=== PATIENT | female | born 1990 | race African-American/Black ===

== ENCOUNTER 2019-12-26 15:31 | Emergency (ER) | payer OTHER ==
[~2019-12-26] VITALS: Ht 149.9 cm; Wt 91.0 kg
[2019-12-26 15:33] VITALS: BP 139/77
[2019-12-26] MEDS ORDERED: IBUP-1653 PO (15:37)
[2019-12-26] MEDS ORDERED: KETOROLAC 30MG/ML VIAL IM ONE (16:15)
[2019-12-26 16:46] LABS: BASOPHILS % 0.6 % (0.0-2.0); CHLORIDE 107 mEq/L (98-107); EOSINOPHILS % 0.3 % (0.0-5.0); HEMATOCRIT. 41.3 % (36.0-48.0); HEMOGLOBIN. 13.7 g/dL (12.0-16.0); LYMPHOCYTES % 21.8 % (20.0-50.0); MEAN CORPUSCULAR HEMOGLOBIN 30.5 pg (28.0-32.0); MEAN CORPUSCULAR VOLUME 91.9 fL (81.0-99.0); MONOCYTES % 5.1 % (2.0-8.0); NEUTROPHILS % 72.2 % (40.0-76.0); PLATELET 289 x1000/uL (130-400); RED CELL DISTRIBUTION WIDTH 12.7 % (11.6-14.6)
[2019-12-26 16:53] LABS: HCG SCREEN NEGATIVE
[2019-12-26] MEDS ORDERED: SODIUM CHLORIDE 0.9% 1,000 ML IV ONE (17:15)
[2019-12-26 17:40] LABS: CLARITY URINE CLOUDY (CLEAR); COLOR URINE DARK YELLOW (YELLOW); KETONES URINE TRACE (NEGATIVE); LEUKOCYTE ESTERASE URINE 2+ (NEGATIVE); NITRITE URINE NEGATIVE (NEGATIVE); OCCULT BLOOD URINE NEGATIVE (NEGATIVE); PH URINE 5.5 (4.5-8.0); PROTEIN URINE TRACE (NEGATIVE); SPECIFIC GRAVITY URINE 1.035 (1.005-1.030)
[2019-12-26] MEDS ORDERED: ONDANSETRON HCL 4MG/2ML INJ IV ONE (17:45)
[2019-12-26] MEDS ORDERED: CEFTRIAXONE 1 G PREMIX 50 ML IV ONE (17:45)
== END 2019-12-26 19:05 | disposition home or self-care (01) ==
LOC: ER 15:31
DX: N10 Acute pyelonephritis (principal); R00.0 Tachycardia, unspecified; Z87.440 Personal history of urinary (tract) infections
CPT/HCPCS: 36415; 80053; 81003; 81025; 84703; 85025; 87086; 96365; 96372; 96375; 99284; J0696; J1885; J2405; J7030

== ENCOUNTER 2019-12-27 23:06 | Emergency (ER) | payer OTHER ==
[~2019-12-27] VITALS: Ht 149.9 cm; Wt 91.0 kg
[~2019-12-27 23:06] MED LIST: IBUP-1653 PO
[2019-12-27] MEDS ORDERED: ONDANSETRON HCL 4MG/2ML INJ IV NR (23:32)
[2019-12-27] MEDS ORDERED: MORPHINE SULFATE 4 MG/ML CPJ (NOT FOR IM USE) IV NR (23:45)
[2019-12-27] MEDS ORDERED: SODIUM CHLORIDE 0.9% 1,000 ML IV NR (23:45)
[2019-12-28 00:11] LABS: BASOPHILS % 0.4 % (0.0-2.0); HEMATOCRIT. 41.2 % (36.0-48.0); HEMOGLOBIN. 13.8 g/dL (12.0-16.0); LYMPHOCYTES % 19.6 % (20.0-50.0); MEAN CORPUSCULAR HEMOGLOBIN 30.8 pg (28.0-32.0); MEAN CORPUSCULAR VOLUME 91.8 fL (81.0-99.0); MONOCYTES % 4.3 % (2.0-8.0); NEUTROPHILS % 74.7 % (40.0-76.0); PLATELET 275 x1000/uL (130-400); RED BLOOD CELL COUNT 4.49 mill/uL (4.2-5.4); RED CELL DISTRIBUTION WIDTH 12.7 % (11.6-14.6)
[2019-12-28 00:22] LABS: CHLORIDE 106 mEq/L (98-107)
[2019-12-28 02:51] LABS: CLARITY URINE CLOUDY (CLEAR); COLOR URINE YELLOW (YELLOW); KETONES URINE 1+ (NEGATIVE); LEUKOCYTE ESTERASE URINE 3+ (NEGATIVE); NITRITE URINE NEGATIVE (NEGATIVE); OCCULT BLOOD URINE 2+ (NEGATIVE); PH URINE 5.5 (4.5-8.0); PROTEIN URINE NEGATIVE (NEGATIVE); SPECIFIC GRAVITY URINE 1.012 (1.005-1.030); UROBILINOGEN URINE 0.2 E.U./dL (0.2-1.0)
[2019-12-28 05:50] VITALS: BP 120/79
== END 2019-12-28 05:55 | disposition home or self-care (01) ==
LOC: ER 23:06
DX: N10 Acute pyelonephritis (principal)
CPT/HCPCS: 36415; 71045; 74176; 80053; 81003; 83605; 84145; 84484; 85025; 87040; 87086; 93005; 96361; 96374; 96375; 99285; J2270; J2405

== ENCOUNTER 2020-01-07 12:13 | Emergency (ER) | payer OTHER ==
[~2020-01-07] VITALS: Ht 149.9 cm; Wt 91.0 kg
[2020-01-07 15:23] LABS: BASOPHILS % 0.3 % (0.0-2.0); EOSINOPHILS % 0.1 % (0.0-5.0); HEMATOCRIT. 41.4 % (36.0-48.0); HEMOGLOBIN. 13.7 g/dL (12.0-16.0); LYMPHOCYTES % 15.3 % (20.0-50.0); MEAN CORPUSCULAR HEMOGLOBIN 29.8 pg (28.0-32.0); MEAN CORPUSCULAR VOLUME 90.3 fL (81.0-99.0); MEAN PLATELET VOLUME 8.7 fl (7.4-10.4); MONOCYTES % 4.9 % (2.0-8.0); NEUTROPHILS % 79.4 % (40.0-76.0); PLATELET 332 x1000/uL (130-400); RED BLOOD CELL COUNT 4.58 mill/uL (4.2-5.4); RED CELL DISTRIBUTION WIDTH 12.3 % (11.6-14.6)
[2020-01-07 15:31] LABS: PROTHROMBIN TIME 10.6 sec (9.6-11.0)
[2020-01-07 15:36] LABS: CHLORIDE 105 mEq/L (98-107)
[2020-01-07 15:36] LABS: CLARITY URINE CLOUDY (CLEAR); COLOR URINE YELLOW (YELLOW); KETONES URINE TRACE (NEGATIVE); LEUKOCYTE ESTERASE URINE 3+ (NEGATIVE); NITRITE URINE NEGATIVE (NEGATIVE); OCCULT BLOOD URINE NEGATIVE (NEGATIVE); PROTEIN URINE TRACE (NEGATIVE); SPECIFIC GRAVITY URINE 1.028 (1.005-1.030)
[2020-01-07] MEDS ORDERED: CEFTRIAXONE 1 G PREMIX 50 ML IV ONE (16:00)
[2020-01-07] MEDS ORDERED: KETOROLAC 30MG/ML VIAL IV ONE (16:15)
[2020-01-07 18:07] VITALS: BP 113/76
== END 2020-01-07 18:19 | disposition home or self-care (01) ==
LOC: ER 12:25
DX: R10.9 Unspecified abdominal pain (principal); N39.0 Urinary tract infection, site not specified
CPT/HCPCS: 36415; 71045; 76770; 80053; 81003; 81025; 83605; 83690; 85025; 85610; 87040; 87086; 93005; 96374; 96375; 99285; J0696; J1885

== ENCOUNTER 2021-12-27 15:46 | Emergency (ER) | payer MEDICAID, OTHER ==
[~2021-12-27] VITALS: Ht 149.9 cm; Wt 2.0 kg
[2021-12-27 15:55] VITALS: BP 123/68
[2021-12-27] MEDS ORDERED: ACETAMINOPHEN 325MG TABLET PO PRN (17:45)
[2021-12-27 18:34] LABS: CHLORIDE 105 mEq/L (98-107)
[2021-12-27 18:37] LABS: CLARITY URINE CLEAR (CLEAR); COLOR URINE YELLOW (YELLOW); KETONES URINE TRACE (NEGATIVE); LEUKOCYTE ESTERASE URINE 1+ (NEGATIVE); NITRITE URINE NEGATIVE (NEGATIVE); OCCULT BLOOD URINE NEGATIVE (NEGATIVE); PROTEIN URINE NEGATIVE (NEGATIVE); SPECIFIC GRAVITY URINE 1.018 (1.005-1.030)
[2021-12-27 18:42] LABS: BASOPHILS % 0.4 % (0.0-2.0); EOSINOPHILS % 0.4 % (0.0-5.0); HEMATOCRIT. 38.7 % (36.0-48.0); HEMOGLOBIN. 12.8 g/dL (12.0-16.0); LYMPHOCYTES % 28.2 % (20.0-50.0); MEAN CORPUSCULAR HEMOGLOBIN 30.3 pg (28.0-32.0); MEAN CORPUSCULAR VOLUME 91.5 fL (81.0-99.0); MEAN PLATELET VOLUME 8.5 fl (7.4-10.4); MONOCYTES % 4.1 % (2.0-8.0); NEUTROPHILS % 66.9 % (40.0-76.0); PLATELET 312 x1000/uL (130-400); RED BLOOD CELL COUNT 4.22 mill/uL (4.2-5.4); RED CELL DISTRIBUTION WIDTH 12.6 % (11.6-14.6)
[2021-12-27 18:57] LABS: B-HCG QUANTITATIVE 13477 mIU/mL (<3)
[2021-12-27] MEDS ORDERED: CEPH500C2 MT (19:54)
== END 2021-12-27 19:30 | disposition left against medical advice (07) ==
LOC: ER 15:55
DX: O20.9 Hemorrhage in early pregnancy, unspecified (principal); O23.41 Unspecified infection of urinary tract in pregnancy, first trimester; N39.0 Urinary tract infection, site not specified; Z3A.01 Less than 8 weeks gestation of pregnancy
CPT/HCPCS: 36415; 76801; 80053; 81003; 81025; 84702; 85025; 86850; 86900; 99284

== ENCOUNTER 2022-01-10 13:33 | Emergency (ER) | payer MEDICAID ==
[~2022-01-10] VITALS: Ht 172.7 cm; Wt 79.0 kg
[~2022-01-10 13:33] MED LIST changes: +CEPH500C2 MT
[2022-01-10 14:18] VITALS: BP 110/74
[2022-01-10 16:13] LABS: BASOPHILS % 0.3 % (0.0-2.0); EOSINOPHILS % 0.2 % (0.0-5.0); HEMATOCRIT. 38.7 % (36.0-48.0); HEMOGLOBIN. 13.2 g/dL (12.0-16.0); LYMPHOCYTES % 40.2 % (20.0-50.0); MEAN CORPUSCULAR HEMOGLOBIN 30.8 pg (28.0-32.0); MEAN CORPUSCULAR VOLUME 90.1 fL (81.0-99.0); MEAN PLATELET VOLUME 8.5 fl (7.4-10.4); MONOCYTES % 6.7 % (2.0-8.0); NEUTROPHILS % 52.6 % (40.0-76.0); PLATELET 259 x1000/uL (130-400); RED BLOOD CELL COUNT 4.29 mill/uL (4.2-5.4); RED CELL DISTRIBUTION WIDTH 12.7 % (11.6-14.6)
[2022-01-10 16:18] LABS: CHLORIDE 101 mEq/L (98-107)
[2022-01-10 16:35] LABS: CLARITY URINE CLOUDY (CLEAR); COLOR URINE YELLOW (YELLOW); KETONES URINE 1+ (NEGATIVE); LEUKOCYTE ESTERASE URINE 2+ (NEGATIVE); NITRITE URINE NEGATIVE (NEGATIVE); OCCULT BLOOD URINE NEGATIVE (NEGATIVE); PROTEIN URINE NEGATIVE (NEGATIVE); SPECIFIC GRAVITY URINE 1.013 (1.005-1.030)
[2022-01-10 16:42] LABS: B-HCG QUANTITATIVE 16807 mIU/mL (<3)
== END 2022-01-10 15:43 | disposition home or self-care (01) ==
LOC: ER 14:17
DX: O02.1 Missed abortion (principal)
CPT/HCPCS: 36415; 76801; 80048; 81003; 81025; 84702; 85025; 99284

== ENCOUNTER 2022-01-18 15:33 | Emergency (ER) | payer MEDICAID ==
[~2022-01-18] VITALS: Ht 149.9 cm; Wt 84.0 kg
[2022-01-18 15:46] VITALS: BP 123/84
== END 2022-01-18 19:56 | disposition left against medical advice (07) ==
LOC: ER 15:33
DX: Z53.21 Procedure and treatment not carried out due to patient leaving prior to being seen by health care provider (principal)

== ENCOUNTER 2022-09-15 07:55 | Emergency (ER) | payer MEDICAID, OTHER ==
[~2022-09-15] VITALS: Ht 149.9 cm; Wt 77.0 kg
[2022-09-15 07:59] VITALS: O2SAT 99
[2022-09-15 08:45] LABS: BASOPHILS % 0.6 % (0.0-2.0); EOSINOPHILS % 1.2 % (0.0-5.0); HEMATOCRIT. 38.3 % (36.0-48.0); HEMOGLOBIN. 12.8 g/dL (12.0-16.0); LYMPHOCYTES % 37.4 % (20.0-50.0); MEAN CORPUSCULAR HEMOGLOBIN 29.7 pg (28.0-32.0); MEAN CORPUSCULAR HGB CONC 33.5 g/dL (31.0-37.0); MEAN CORPUSCULAR VOLUME 88.9 fL (81.0-99.0); MEAN PLATELET VOLUME 8.4 fl (7.4-10.4); MONOCYTES % 4.6 % (2.0-8.0); NEUTROPHILS % 56.2 % (40.0-76.0); PLATELET 295 x1000/uL (130-400); RED BLOOD CELL COUNT 4.31 mill/uL (4.2-5.4); RED CELL DISTRIBUTION WIDTH 14.4 % (11.6-14.6); WHITE BLOOD COUNT 7.6 x1000/uL (4.5-11.0)
[2022-09-15 08:51] LABS: CHLORIDE 109 mEq/L (98-107); HCG SCREEN POSITIVE; INDEX HEMOLYSI 1 (1-3); INDEX ICTERIC 1 (1-4); INDEX LIPEMIC 1 (1-3); SODIUM 138 mEq/L (136-145)
[2022-09-15 08:59] LABS: ALANINE AMINOTRANSFERASE 17 IU/L (13-61); ALBUMIN 3.4 g/dL (3.4-5.0); ASPARTATE AMINOTRANSFERASE 8 IU/L (15-37); BILIRUBIN TOTAL 0.2 mg/dL (0.1-1.0); CALCIUM 8.8 mg/dL (8.5-10.1); CARBON DIOXIDE 26 mEq/L (21-32); CREATININE 0.7 mg/dL (0.6-1.3); GLUCOSE 99 mg/dL (70-105); UREA NITROGEN BLOOD 7 mg/dL (7-21)
[2022-09-15 13:23] VITALS: BP 127/73; PULSE 62; RESP 18; TEMP 98.7
== END 2022-09-15 13:24 | disposition home or self-care (01) ==
LOC: ER 07:55
DX: O46.91 Antepartum hemorrhage, unspecified, first trimester (principal); Z3A.00 Weeks of gestation of pregnancy not specified
CPT/HCPCS: 36415; 76801; 80053; 84702; 84703; 85025; 86850; 86900; 99284

== ENCOUNTER 2023-03-01 13:21 | Emergency (ER) | payer MEDICAID, OTHER ==
[~2023-03-01] VITALS: Ht 149.9 cm; Wt 74.8 kg
[2023-03-01 14:00] VITALS: O2SAT 100
[2023-03-01] MEDS ORDERED: ACETAMINOPHEN 325MG TABLET PO STA (17:07)
[2023-03-01] MEDS ORDERED: METH-653 GT (17:42)
[2023-03-01] MEDS ORDERED: IBUP-2028 MT (17:43)
[2023-03-01 18:35] VITALS: BP 124/85; PULSE 87; RESP 18; TEMP 98.2
== END 2023-03-01 18:37 | disposition home or self-care (01) ==
LOC: ER 13:21
DX: M79.18 Myalgia, other site (principal)
CPT/HCPCS: 99282

== ENCOUNTER 2023-07-13 10:09 | Emergency (ER) | payer MEDICAID, OTHER ==
[~2023-07-13] VITALS: Ht 149.9 cm; Wt 76.0 kg
[~2023-07-13 10:09] MED LIST changes: +IBUP-2028 MT; +METH-653 GT
[2023-07-13 10:23] VITALS: TEMP 98; O2SAT 100
[2023-07-13] MEDS ORDERED: PREN-140 PO (10:43)
[2023-07-13] MEDS ORDERED: CEPH500C2 MT (12:22)
[2023-07-13 12:38] VITALS: BP 101/43; PULSE 87; RESP 20
[2023-07-13 12:41] LABS: CLARITY URINE CLEAR (CLEAR); COLOR URINE YELLOW (YELLOW); GLUCOSE URINE NEGATIVE (NEGATIVE); KETONES URINE NEGATIVE (NEGATIVE); LEUKOCYTE ESTERASE URINE 1+ (NEGATIVE); NITRITE URINE NEGATIVE (NEGATIVE); OCCULT BLOOD URINE NEGATIVE (NEGATIVE); PH URINE 6.5 (4.5-8.0); PROTEIN URINE NEGATIVE (NEGATIVE); SPECIFIC GRAVITY URINE 1.008 (1.005-1.030)
[2023-07-13 13:18] LABS: SQUAMOUS EPITHELIAL CELL URINE 2+ /lpf (RARE/1+)
[2023-07-13 13:19] LABS: MUCUS URINE TRACE /lpf (< = 2+)
[2023-07-13 13:20] LABS: TRICHOMONAS URINE 2+; WBC URINE 0-2 /hpf (0-2)
[2023-07-13 13:21] LABS: BACTERIA URINE TRACE; RBC URINE NONE SEEN /hpf (0-2)
[2023-07-13] MEDS ORDERED: METR-167 MT (13:38)
== END 2023-07-13 12:39 | disposition home or self-care (01) ==
LOC: ER 10:09
DX: R25.2 Cramp and spasm (principal); Z32.01 Encounter for pregnancy test, result positive
CPT/HCPCS: 36415; 81003; 81025; 84702; 86900; 99283

== ENCOUNTER 2023-07-13 17:51 | Emergency (ER) | payer OTHER ==
[~2023-07-13] VITALS: Ht 162.6 cm; Wt 75.0 kg
[~2023-07-13 17:51] MED LIST changes: +METR-167 MT; +PREN-140 PO
[2023-07-13 18:16] VITALS: O2SAT 100
[2023-07-13 20:24] VITALS: BP 112/64; PULSE 86; RESP 16; TEMP 98.2
== END 2023-07-13 20:25 | disposition home or self-care (01) ==
LOC: ER 17:51
DX: O26.891 Other specified pregnancy related conditions, first trimester (principal); Z3A.13 13 weeks gestation of pregnancy
CPT/HCPCS: 76801; 99284

== ENCOUNTER 2023-07-21 06:53 | Emergency (ER) | payer MEDICAID ==
[~2023-07-21] VITALS: Ht 149.9 cm; Wt 74.0 kg
[2023-07-21 07:03] VITALS: O2SAT 100
[2023-07-21 07:27] LABS: BASOPHILS % 0.3 % (0.0-2.0); EOSINOPHILS % 0.7 % (0.0-5.0); HEMATOCRIT. 37.3 % (36.0-48.0); HEMOGLOBIN. 12.5 g/dL (12.0-16.0); LYMPHOCYTES % 23.2 % (20.0-50.0); MEAN CORPUSCULAR HEMOGLOBIN 31.2 pg (28.0-32.0); MEAN CORPUSCULAR HGB CONC 33.5 g/dL (31.0-37.0); MEAN CORPUSCULAR VOLUME 93.2 fL (81.0-99.0); MEAN PLATELET VOLUME 8.8 fl (7.4-10.4); MONOCYTES % 5.4 % (2.0-8.0); NEUTROPHILS % 70.4 % (40.0-76.0); PLATELET 273 x1000/uL (130-400); RED BLOOD CELL COUNT 4.01 mill/uL (4.2-5.4); WHITE BLOOD COUNT 11.2 x1000/uL (4.5-11.0)
[2023-07-21 07:33] LABS: CHLORIDE 105 mEq/L (98-107); POTASSIUM 3.5 mEq/L (3.5-5.1); SODIUM 136 mEq/L (136-145)
[2023-07-21 07:34] LABS: CALCIUM 9.2 mg/dL (8.7-10.4); CARBON DIOXIDE 27 mEq/L (21-32)
[2023-07-21 07:39] LABS: CREATININE 0.5 mg/dL (0.6-1.0); GLUCOSE 84 mg/dL (70-105); UREA NITROGEN BLOOD 6 mg/dL (9-23)
[2023-07-21 07:41] LABS: ALANINE AMINOTRANSFERASE 12 IU/L (10-49); ALBUMIN 4.2 g/dL (3.2-4.8); ASPARTATE AMINOTRANSFERASE 16 IU/L (<34); BILIRUBIN DIRECT 0.1 mg/dL (<=3.0); BILIRUBIN TOTAL 0.4 mg/dL (0.1-1.0); PROTEIN TOTAL 6.9 g/dL (6.0-8.3)
[2023-07-21 09:26] LABS: CLARITY URINE TURBID (CLEAR); COLOR URINE YELLOW (YELLOW); GLUCOSE URINE NEGATIVE (NEGATIVE); KETONES URINE NEGATIVE (NEGATIVE); LEUKOCYTE ESTERASE URINE 3+ (NEGATIVE); NITRITE URINE NEGATIVE (NEGATIVE); OCCULT BLOOD URINE NEGATIVE (NEGATIVE); PROTEIN URINE 1+ (NEGATIVE); SPECIFIC GRAVITY URINE 1.023 (1.005-1.030)
[2023-07-21 09:37] LABS: BACTERIA URINE 4+; SQUAMOUS EPITHELIAL CELL URINE 3+ /lpf (RARE/1+); YEAST URINE 1+
[2023-07-21] MEDS ORDERED: NYST15CR37 TP (10:09)
[2023-07-21] MEDS ORDERED: AMOX1TAB16 MT (10:10)
[2023-07-21 10:34] VITALS: BP 119/86; PULSE 79; RESP 15; TEMP 98.5
== END 2023-07-21 10:50 | disposition home or self-care (01) ==
LOC: ER 07:09
DX: O23.42 Unspecified infection of urinary tract in pregnancy, second trimester (principal); N39.0 Urinary tract infection, site not specified; Z3A.14 14 weeks gestation of pregnancy
CPT/HCPCS: 80076; 80048; 81003; 81025; 84702; 85025; 86850; 86900; 86901; 87086; 87186; 87077; 36415; 76805; 99284; Z7610 ×3

== ENCOUNTER 2023-08-03 09:34 | Emergency (ER) | payer MEDICAID, OTHER ==
[~2023-08-03] VITALS: Ht 149.9 cm; Wt 72.6 kg
[~2023-08-03 09:34] MED LIST changes: +AMOX1TAB16 MT; +NYST15CR37 TP
[2023-08-03 09:40] VITALS: BP 137/71; PULSE 104; RESP 16; TEMP 98.4; O2SAT 100
[2023-08-03 10:32] LABS: CLARITY URINE CLEAR (CLEAR); COLOR URINE YELLOW (YELLOW); GLUCOSE URINE NEGATIVE (NEGATIVE); KETONES URINE NEGATIVE (NEGATIVE); LEUKOCYTE ESTERASE URINE NEGATIVE (NEGATIVE); NITRITE URINE NEGATIVE (NEGATIVE); OCCULT BLOOD URINE NEGATIVE (NEGATIVE); PH URINE 7.5 (4.5-8.0); PROTEIN URINE NEGATIVE (NEGATIVE); SPECIFIC GRAVITY URINE 1.005 (1.005-1.030)
[2023-08-03 11:50] LABS: BASOPHILS % 0.5 % (0.0-2.0); EOSINOPHILS % 0.4 % (0.0-5.0); HEMATOCRIT. 36.8 % (36.0-48.0); HEMOGLOBIN. 12.3 g/dL (12.0-16.0); LYMPHOCYTES % 24.4 % (20.0-50.0); MEAN CORPUSCULAR HEMOGLOBIN 31.4 pg (28.0-32.0); MEAN CORPUSCULAR HGB CONC 33.5 g/dL (31.0-37.0); MEAN CORPUSCULAR VOLUME 93.8 fL (81.0-99.0); MEAN PLATELET VOLUME 8.5 fl (7.4-10.4); MONOCYTES % 4.5 % (2.0-8.0); NEUTROPHILS % 70.2 % (40.0-76.0); PLATELET 273 x1000/uL (130-400); RED BLOOD CELL COUNT 3.92 mill/uL (4.2-5.4); RED CELL DISTRIBUTION WIDTH 13.1 % (11.6-14.6); WHITE BLOOD COUNT 11.5 x1000/uL (4.5-11.0)
[2023-08-03 12:13] LABS: CHLORIDE 107 mEq/L (98-107); POTASSIUM 3.7 mEq/L (3.5-5.1); SODIUM 137 mEq/L (136-145)
[2023-08-03 12:14] LABS: CARBON DIOXIDE 23 mEq/L (21-32)
[2023-08-03 12:15] LABS: CALCIUM 9.9 mg/dL (8.7-10.4)
[2023-08-03 12:19] LABS: B-HCG QUANTITATIVE > 1000 mIU/mL (<3); CREATININE 0.5 mg/dL (0.6-1.0); GLUCOSE 77 mg/dL (70-105)
[2023-08-03 12:21] LABS: ALANINE AMINOTRANSFERASE 16 IU/L (10-49); ALBUMIN 4.5 g/dL (3.2-4.8); ASPARTATE AMINOTRANSFERASE 19 IU/L (<34)
[2023-08-03 12:22] LABS: BILIRUBIN DIRECT 0.1 mg/dL (<=3.0); BILIRUBIN TOTAL 0.4 mg/dL (0.1-1.0); PROTEIN TOTAL 6.9 g/dL (6.0-8.3)
[2023-08-03 12:29] LABS: UREA NITROGEN BLOOD < 5 mg/dL (9-23)
== END 2023-08-03 12:59 | disposition home or self-care (01) ==
LOC: ER 10:20
DX: O26.892 Other specified pregnancy related conditions, second trimester (principal); R10.9 Unspecified abdominal pain; Z3A.16 16 weeks gestation of pregnancy
CPT/HCPCS: 36415; 76805; 76857; 80048; 80076; 81003; 84702; 85025; 93976; 99284

== ENCOUNTER 2023-08-09 06:14 | Emergency (ER) | payer MEDICAID ==
[~2023-08-09] VITALS: Ht 149.9 cm; Wt 73.8 kg
[2023-08-09 06:17] VITALS: O2SAT 99
[2023-08-09] MEDS: ACETAMINOPHEN 325MG TABLET PO STA (06:53)
[2023-08-09] MEDS: SODIUM CHLORIDE 0.9% 1,000 ML IV ONE (06:53)
[2023-08-09] MEDS: ONDANSETRON HCL 4MG/2ML INJ IV ONE (06:56)
[2023-08-09 07:10] VITALS: TEMP 98.5
[2023-08-09] MEDS ORDERED: TOPUD PO (08:30)
[2023-08-09 08:57] VITALS: BP 119/87; PULSE 69; RESP 18
== END 2023-08-09 08:58 | disposition home or self-care (01) ==
LOC: ER 06:14
DX: O26.892 Other specified pregnancy related conditions, second trimester (principal); Z79.899 Other long term (current) drug therapy; F12.10 Cannabis abuse, uncomplicated; R51.9 Headache, unspecified; R11.10 Vomiting, unspecified; Z3A.19 19 weeks gestation of pregnancy
CPT/HCPCS: 96360; 99283; J2405; J7030; Z7610

== ENCOUNTER 2024-01-14 10:49 | Emergency (ER) | payer MEDICAID ==
[~2024-01-14] VITALS: Ht 172.7 cm; Wt 70.0 kg
[~2024-01-14 10:49] MED LIST changes: +TOPUD PO
[2024-01-14 10:55] VITALS: O2SAT 99
[2024-01-14 11:33] LABS: BASOPHILS % 0.6 % (0.0-2.0); EOSINOPHILS % 1.2 % (0.0-5.0); HEMATOCRIT. 39.3 % (36.0-48.0); HEMOGLOBIN. 13.2 g/dL (12.0-16.0); LYMPHOCYTES % 32.4 % (20.0-50.0); MEAN CORPUSCULAR HEMOGLOBIN 30.4 pg (28.0-32.0); MEAN CORPUSCULAR HGB CONC 33.6 g/dL (31.0-37.0); MEAN CORPUSCULAR VOLUME 90.5 fL (81.0-99.0); MEAN PLATELET VOLUME 8.7 fl (7.4-10.4); MONOCYTES % 5.4 % (2.0-8.0); NEUTROPHILS % 60.4 % (40.0-76.0); PLATELET 307 x1000/uL (130-400); RED BLOOD CELL COUNT 4.34 mill/uL (4.2-5.4); RED CELL DISTRIBUTION WIDTH 14.2 % (11.6-14.6); WHITE BLOOD COUNT 10.6 x1000/uL (4.5-11.0)
[2024-01-14] MEDS: ONDANSETRON HCL 4MG/2ML INJ IV ONE (11:38)
[2024-01-14] MEDS: MORPHINE SULFATE 4 MG/ML INJ (FOR IV/IM USE) IV ONE (11:38)
[2024-01-14] MEDS: SODIUM CHLORIDE 0.9% 500 ML IV ONE (11:38)
[2024-01-14 11:39] LABS: CHLORIDE 107 mEq/L (98-107); POTASSIUM 3.5 mEq/L (3.5-5.1); SODIUM 139 mEq/L (136-145)
[2024-01-14 11:40] LABS: CALCIUM 9.2 mg/dL (8.7-10.4); CARBON DIOXIDE 25 mEq/L (21-32)
[2024-01-14 11:45] LABS: CREATININE 0.6 mg/dL (0.6-1.0); GLUCOSE 101 mg/dL (70-105); UREA NITROGEN BLOOD 12 mg/dL (9-23)
[2024-01-14 11:47] LABS: ALANINE AMINOTRANSFERASE < 7 IU/L (10-49); ASPARTATE AMINOTRANSFERASE 10 IU/L (<34)
[2024-01-14 11:48] LABS: BILIRUBIN TOTAL 0.3 mg/dL (0.1-1.0); PROTEIN TOTAL 6.5 g/dL (6.0-8.3)
[2024-01-14 11:52] LABS: BILIRUBIN DIRECT < 0.1 mg/dL (<=3.0)
[2024-01-14 11:58] LABS: PROTHROMBIN TIME 10.9 sec (9.6-11.0)
[2024-01-14 12:02] LABS: HCG SCREEN POSITIVE
[2024-01-14 13:46] VITALS: BP 119/62; PULSE 74; RESP 20; TEMP 37.05852; O2SAT 99
[2024-01-14 14:40] LABS: CLARITY URINE CLEAR (CLEAR); COLOR URINE YELLOW (YELLOW); GLUCOSE URINE NEGATIVE (NEGATIVE); KETONES URINE NEGATIVE (NEGATIVE); LEUKOCYTE ESTERASE URINE TRACE (NEGATIVE); NITRITE URINE NEGATIVE (NEGATIVE); OCCULT BLOOD URINE 3+ (NEGATIVE); PROTEIN URINE NEGATIVE (NEGATIVE); SPECIFIC GRAVITY URINE 1.013 (1.005-1.030)
[2024-01-14 14:55] LABS: RBC URINE 25-50 /hpf (0-2); SQUAMOUS EPITHELIAL CELL URINE 1+ /lpf (RARE/1+); TRICHOMONAS URINE FEW; WBC URINE 0-2 /hpf (0-2); YEAST URINE NONE SEEN
[2024-01-14 14:57] LABS: BACTERIA URINE FEW
[2024-01-14 14:58] LABS: *AMPHETAMINES SCREEN URINE NEGATIVE (NEGATIVE); *BARBITURATES SCREEN URINE NEGATIVE (NEGATIVE); *BENZODIAZEPINES SCREEN URINE NEGATIVE (NEGATIVE); *COCAINE SCREEN URINE NEGATIVE (NEGATIVE); CANNABINOID URINE SCREEN PRESUMPTIVE POSITIVE (NEGATIVE); METHADONE URINE SCREEN NEGATIVE (NEGATIVE); OPIATES URINE SCREEN PRESUMPTIVE POSITIVE (NEGATIVE); PHENCYCLIDINE URINE SCREEN NEGATIVE (NEGATIVE)
[2024-01-14 14:59] LABS: ECSTASY MDMA SCREEN URINE NEGATIVE (NEGATIVE)
== END 2024-01-14 15:13 | disposition home or self-care (01) ==
LOC: ER 10:55
DX: N93.9 Abnormal uterine and vaginal bleeding, unspecified (principal); F12.10 Cannabis abuse, uncomplicated; Z79.899 Other long term (current) drug therapy
CPT/HCPCS: 99285; 96374; 76801; 96361; 96375; 80076; 80305; 80048; 84703; 84702; 83690; 85025; 85610; 86850; 86900; 86901; 93005; 81003; 36415; J2405; J2270; J7040

== ENCOUNTER 2024-01-16 11:49 | Emergency (ER) | payer MEDICAID ==
[~2024-01-16] VITALS: Ht 149.9 cm; Wt 85.0 kg
[2024-01-16 11:55] VITALS: O2SAT 98
[2024-01-16] MEDS: MORPHINE SULFATE 4 MG/ML INJ (FOR IV/IM USE) IV ONE (14:10)
[2024-01-16] MEDS: ONDANSETRON HCL 4MG/2ML INJ IV ONE (14:11)
[2024-01-16 16:36] VITALS: BP 109/49; PULSE 72; RESP 13; TEMP 36.72516; O2SAT 98
== END 2024-01-16 18:42 | disposition home or self-care (01) ==
LOC: ER 11:51
DX: O03.9 Complete or unspecified spontaneous abortion without complication (principal)
CPT/HCPCS: 84702; 36415; 76856; 96374; 96375; 99285; J2405; J2270; Z7610 ×3

== ENCOUNTER 2024-02-12 11:33 | Emergency (ER) | payer MEDICAID ==
[~2024-02-12] VITALS: Ht 149.9 cm; Wt 81.0 kg
[2024-02-12 11:34] VITALS: O2SAT 100
[2024-02-12 11:54] VITALS: BP 128/76; PULSE 92; RESP 16; TEMP 98.4; O2SAT 100
[2024-02-12] MEDS ORDERED: AMOX1TAB16 MT (12:29)
[2024-02-12] MEDS ORDERED: IBUP-2029 MT (12:45)
[2024-02-12] MEDS: KETOROLAC 30MG/ML VIAL IM ONE (12:49)
== END 2024-02-12 12:53 | disposition home or self-care (01) ==
LOC: ER 11:33
DX: K04.7 Periapical abscess without sinus (principal); Z79.899 Other long term (current) drug therapy
CPT/HCPCS: 99283; J1885

== ENCOUNTER 2024-03-18 09:14 | Emergency (ER) | payer MEDICAID ==
[~2024-03-18] VITALS: Ht 149.9 cm; Wt 82.0 kg
[~2024-03-18 09:14] MED LIST changes: +IBUP-2029 MT
[2024-03-18 09:20] VITALS: O2SAT 96
[2024-03-18 09:50] VITALS: BP 129/94; PULSE 92; RESP 16; TEMP 36.4; O2SAT 100
[2024-03-18 11:55] VITALS: TEMP 97.6
[2024-03-18] MEDS: ACETAMINOPHEN 325MG TABLET PO ONE (11:55)
[2024-03-18] MEDS ORDERED: ACET-2708 MT (13:10)
[2024-03-18] MEDS ORDERED: IBUP-2028 MT (13:10)
== END 2024-03-18 14:34 | disposition home or self-care (01) ==
LOC: ER 09:14
DX: S00.11XA Contusion of right eyelid and periocular area, initial encounter (principal); F19.90 Other psychoactive substance use, unspecified, uncomplicated; Z79.899 Other long term (current) drug therapy; Z98.890 Other specified postprocedural states; Z59.00 Homelessness unspecified; Y08.89XA Assault by other specified means, initial encounter; Y93.89 Activity, other specified; Y92.89 Other specified places as the place of occurrence of the external cause; Y99.8 Other external cause status
CPT/HCPCS: 70486; 81025; 99284

== ENCOUNTER 2024-06-12 07:47 | Emergency (ER) | payer MEDICAID ==
[~2024-06-12] VITALS: Ht 149.9 cm; Wt 77.0 kg
[~2024-06-12 07:47] MED LIST changes: +ACET-2708 MT; +NYST15CR31 TP; -NYST15CR37 TP
[2024-06-12 07:55] VITALS: O2SAT 99
[2024-06-12 08:59] LABS: BASOPHILS % 0.3 % (0.0-2.0); EOSINOPHILS % 0.8 % (0.0-5.0); HEMATOCRIT. 41.4 % (36.0-48.0); HEMOGLOBIN. 13.9 g/dL (12.0-16.0); LYMPHOCYTES % 25.1 % (20.0-50.0); MEAN CORPUSCULAR HEMOGLOBIN 30.8 pg (28.0-32.0); MEAN CORPUSCULAR HGB CONC 33.6 g/dL (31.0-37.0); MEAN CORPUSCULAR VOLUME 91.5 fL (81.0-99.0); MEAN PLATELET VOLUME 8.5 fl (7.4-10.4); MONOCYTES % 4.6 % (2.0-8.0); NEUTROPHILS % 69.2 % (40.0-76.0); PLATELET 297 x1000/uL (130-400); RED BLOOD CELL COUNT 4.52 mill/uL (4.2-5.4); RED CELL DISTRIBUTION WIDTH 13.2 % (11.6-14.6); WHITE BLOOD COUNT 10.7 x1000/uL (4.5-11.0)
[2024-06-12 09:09] LABS: CARBON DIOXIDE 25 mEq/L (21-32); CHLORIDE 107 mEq/L (98-107); POTASSIUM 3.9 mEq/L (3.5-5.1); SODIUM 140 mEq/L (136-145)
[2024-06-12 09:10] LABS: CALCIUM 9.8 mg/dL (8.7-10.4)
[2024-06-12 09:11] LABS: HCG SCREEN NEGATIVE
[2024-06-12 09:15] LABS: CREATININE 0.7 mg/dL (0.6-1.0); GLUCOSE 101 mg/dL (70-105); UREA NITROGEN BLOOD 8 mg/dL (9-23)
[2024-06-12 09:18] LABS: ALANINE AMINOTRANSFERASE 9 IU/L (10-49); ASPARTATE AMINOTRANSFERASE 13 IU/L (<34); BILIRUBIN DIRECT 0.2 mg/dL (<=3.0); BILIRUBIN TOTAL 0.7 mg/dL (0.1-1.0); PROTEIN TOTAL 7.1 g/dL (6.0-8.3)
[2024-06-12 09:30] LABS: CLARITY URINE CLEAR (CLEAR); COLOR URINE YELLOW (YELLOW); GLUCOSE URINE NEGATIVE (NEGATIVE); KETONES URINE NEGATIVE (NEGATIVE); LEUKOCYTE ESTERASE URINE 1+ (NEGATIVE); NITRITE URINE NEGATIVE (NEGATIVE); OCCULT BLOOD URINE 3+ (NEGATIVE); PH URINE 6.5 (4.5-8.0); PROTEIN URINE NEGATIVE (NEGATIVE); SPECIFIC GRAVITY URINE 1.011 (1.005-1.030)
[2024-06-12] MEDS: KETOROLAC 30MG/ML VIAL IM ONE (10:04)
[2024-06-12] MEDS: METHOCARBAMOL 500MG TABLET PO ONE (10:04)
[2024-06-12 10:15] LABS: SQUAMOUS EPITHELIAL CELL URINE 1+ /lpf (RARE/1+)
[2024-06-12 10:16] LABS: BACTERIA URINE TRACE; MUCUS URINE TRACE /lpf (< = 2+); RBC URINE TNTC /hpf (0-2)
[2024-06-12 10:19] LABS: TRICHOMONAS URINE 1+
[2024-06-12] MEDS ORDERED: CEPH500T MT (10:27)
[2024-06-12] MEDS ORDERED: METR-167 MT (10:27)
[2024-06-12] MEDS ORDERED: METH-653 MT (10:41)
[2024-06-12 10:44] VITALS: BP 118/71; PULSE 90; RESP 16; TEMP 37; O2SAT 99
== END 2024-06-12 11:05 | disposition home or self-care (01) ==
LOC: ER 07:47
DX: S33.5XXA Sprain of ligaments of lumbar spine, initial encounter (principal); A59.01 Trichomonal vulvovaginitis; F19.90 Other psychoactive substance use, unspecified, uncomplicated; Z98.890 Other specified postprocedural states; Z79.899 Other long term (current) drug therapy; X58.XXXA Exposure to other specified factors, initial encounter; Y93.89 Activity, other specified; Y92.89 Other specified places as the place of occurrence of the external cause; Y99.8 Other external cause status
CPT/HCPCS: 99285; 76700; 80076; 80048; 81003; 84703; 85025; 36415; 96372; J1885